=== PATIENT | male | born 1940 | race Caucasian/White ===

== ENCOUNTER → 2018-01-24 | Outpatient (CLI) | payer MEDICARE, OTHER ==
[~2018-01-24] MED LIST: ASCO500 PO; ASPI81EC PO; CALCAVITD PO; CHOL10002 PO; DIAZ5 PO; GLUCHON PO; GUAI600T33 PO; HYDR1TAB94 PO; IBUP800 PO; IBUPROFEN; LEVFLO500 PO; NORT25 PO; OMEP20ER PO; OXYC5 PO; PROCODE120 PO; SUCR1 PO; TADA10TA; TADA10TA PO; [UNRECOGNIZED DRUG - REMARK]
[2018-01-25 10:53] LABS: Adenovirus F 40/41 Not Detected (NOT DETECT); Astrovirus Not Detected (NOT DETECT); Campylobacter Sp Not Detected (NOT DETECT); Cryptosporidium Not Detected (NOT DETECT); Cyclospora Cayetanensis Not Detected (NOT DETECT); E. Coli O157 Not Detected (NOT DETECT); Entamoeba Histolytica Not Detected (NOT DETECT); Enteroaggregative E. coli-EAEC Not Detected (NOT DETECT); Enteropathogenic E. coli-EPEC Not Detected (NOT DETECT); Enterotoxigenic E. coli-ETEC Not Detected (NOT DETECT); Giardia Lamblia Not Detected (NOT DETECT); Norovirus GI/GII Not Detected (NOT DETECT); Plesiomonas Shigelloides Not Detected (NOT DETECT); Rotavirus A Not Detected (NOT DETECT); Salmonella Sp Not Detected (NOT DETECT); Sapovirus Not Detected (NOT DETECT); Shiga Toxin-prod E. coli-STEC Not Detected (NOT DETECT); Shigella/Enteroin E. coli-EIEC Not Detected (NOT DETECT); Vibrio Cholerae Not Detected (NOT DETECT); Vibrio Sp Not Detected (NOT DETECT); Yersinia Enterocolitica Not Detected (NOT DETECT)
== END | disposition home or self-care (01) ==
LOC: LAB 15:00 → LAB SHORT 15:00
DX: R19.7 Diarrhea, unspecified (principal)
CPT/HCPCS: 87507

== ENCOUNTER 2020-09-24 19:03 | Inpatient (IN) | payer OTHER ==
[~2020-09-24] VITALS: Ht 188 cm; Wt 99.3 kg
[~2020-09-24 19:03] MED LIST changes: +ASPI81CH PO; -CHOL10002 PO; +Percocet 5-3251 EACH PO; +VITAMIN D PO
[2020-09-24 19:42] LABS: BASOPHILS ABSOLUTE AUTO 0.04 K/mm3 (0.00-0.23); BASOPHILS PERCENT AUTO 1 % (0-2); EOSINOPHILS ABSOLUTE AUTO 0.04 K/mm3 (0.00-0.68); EOSINOPHILS PERCENT AUTO 1 % (0-6); Hemoglobin 15.4 g/dL (13.5-17.5); IMMATURE GRAN ABSOLUTE AUTO 0.19 K/mm3 (0.00-0.10); IMMATURE GRAN PERCENT AUTO 2 % (0-1); LYMPHOCYTES ABSOLUTE AUTO 2.98 K/mm3 (0.84-5.20); LYMPHOCYTES PERCENT AUTO 35 % (21-46); MONOCYTES ABSOLUTE AUTO 0.48 K/mm3 (0.16-1.47); MONOCYTES PERCENT AUTO 6 % (4-13); Mean Corpuscular HGB 33.6 pg (26.0-34.0); Mean Corpuscular Volume 96 fL (80-100); Mean Platelet Volume 9.1 fL (9.1-12.4); NEUTROPHILS ABSOLUTE AUTO 4.89 K/mm3 (1.96-9.15); NEUTROPHILS PERCENT AUTO 57 % (41-73); Platelet Count 194 K/mm3 (150-400); RDW Coefficient Variation 13.1 % (11.7-14.2); RDW Standard Deviation 46.3 fL (35.1-46.3); Red Blood Cell Count 4.58 M/mm3 (4.30-5.90); White Blood Cell Count 8.62 K/mm3 (4.00-11.30)
[2020-09-24 19:56] LABS: International Normalized Ratio 1.06; Prothrombin Time Results 11.4 Sec (9.7-11.5)
[2020-09-24 20:17] LABS: Alanine Aminotransfer (ALT/SGP 39 U/L (12-78); Albumin, Blood 3.4 g/dL (3.4-5.0); Albumin/Globulin Ratio 1.2 (0.8-1.8); Alk Phos 95 U/L (50-136); Anion Gap 10 mmol/L (6-16); Aspartate Aminotrans (AST/SGOT 72 U/L (12-37); Bilirubin, Total 0.4 mg/dL (0.1-1.0); Blood Urea Nitrogen 12 mg/dL (8-24); Bun/Creatinine Ratio 10.5 (12.0-20.0); CO2, Blood 22 mmol/L (21-32); Calcium, Blood 8.5 mg/dL (8.5-10.1); Chloride, Blood 106 mmol/L (98-108); Creatinine, Blood 1.14 mg/dL (0.60-1.20); Globulin, Blood 2.9 g/dL (2.2-4.0); Glomerular Filtration Rate >60 (60-); Glucose, Blood 165 mg/dL (70-99); Potassium, Blood 2.9 mmol/L (3.5-5.5); Sodium, Blood 138 mmol/L (136-145); Total Protein, Blood 6.3 g/dL (6.4-8.2)
[2020-09-24 20:21] LABS: Source, Urine Catheter
[2020-09-24 20:24] LABS: Bilirubin, Urine Neg (Neg); Blood, Urine 2+ (Neg); Glucose Qualitative, Urine Neg (Neg); Ketones, Urine Neg (Neg); Leukocyte Esterase, Urine Neg (Neg); Nitrite, Urine Neg (Neg); Protein, Urine 3+ (Neg); Specific Gravity, Urine 1.015 (1.003-1.022); Urobilinogen, Urine NORM (Normal)
[2020-09-24 20:32] LABS: Appearance, Urine Hazy (Clear); Color, Urine Yellow (P-Yellow)
[2020-09-24 20:34] LABS: Bacteria Many /hpf; Hyaline Casts 0-2 /lpf (0-2)
[2020-09-24 20:38] LABS: Squamous Epithelial Cells Few /hpf (Few); White Blood Cells, Urine 0-2 /hpf (0-5)
[2020-09-24 20:40] LABS: Spermatozoa Few /hpf
[2020-09-24 22:18] LABS: Prolactin 60.7 ng/mL (2.5-17.4)
[2020-09-25 04:44] LABS: Anion Gap 7 mmol/L (6-16); Blood Urea Nitrogen 11 mg/dL (8-24); Bun/Creatinine Ratio 11.4 (12.0-20.0); CO2, Blood 24 mmol/L (21-32); Chloride, Blood 109 mmol/L (98-108); Creatinine, Blood 0.96 mg/dL (0.60-1.20); Glomerular Filtration Rate >60 (60-); Glucose, Blood 124 mg/dL (70-99); Potassium, Blood 3.7 mmol/L (3.5-5.5); Sodium, Blood 140 mmol/L (136-145)
--- NOTE | 2020-09-25 06:08 | NUR ---
SHIFT SUMMARY PT ARRIVED TO THE UNIT AROUND 2305, CONFUSED AND ORIENTED TO SELF AND . BP HYPOTENSIVE 101/64. HR 70'S, JUMPING UP TO 120-140'S FOR SHORT PERIODS IN SINUS RHYTHM. PT ON 4LPM VIA NC WITH O2 SATS LOW 90'S. NEURO CHECK SHOWED CONFUSION WITH L SIDE MOVEMENTS. PT NEEDED SPECIFIC DETAIL TO SQUEEZE WITH L HAD BUT GIP STRENGTH EQUAL WHEN ABLE TO SQUEEZE. L ARM DRIFT PRESENT. FACE SYMMETRICAL, NO DROOP. WHEN ASKED TO PULL FEET AGAINST HANDS ONLY R HAD RESPONSE. WHEN ASKED TO PULL L FOOT ONLY PT ABLE TO RESPOND WITH SAME STRENGTH R. PUPILS SLUGGISH, PT UNABLE TO FOLLOW FINGER WITH EYES IN ANY DIRECTION, PT WOULD FIX ON R SIDE GAZE. NEURO REMAINED UNCHANGED T/O THE SHIFT. PT NEEDED CONTINUOUS REORIENTATION HE WOULD FORGET WHAT HE WAS TOLD ALMOST IMMEDIATELY. PT REMAIND CONFUSED AND DISORIENTED T/O THE SHIFT, YELLING OUT FOR HIS THINKING HE IS IN HIS HOME. PAIN WAS NOT WELL CONTROLLED UNTIL F[place]ANYL, THEN PT ABLE TO SLEEP SOME. BP HYPOTENSIVE T/O SHIFT AVG 100 SYSTOLIC WITH MAP >65. HR AVG 70'S, WOULD JUMP TO 120-140'S FOR SEVERAL MINUTES, THIS WOULD HAPPEN ABOUT ONCE AN HOUR. PT NPO WITH NS RUNNING T/O THE NIGHT.
[2020-09-25 07:14] LABS: International Normalized Ratio 1.06; Prothrombin Time Results 11.4 Sec (9.7-11.5)
--- NOTE | 2020-09-25 09:56 | NUR ---
JARET WALDROP WALDROP PLACED BY ER UPON ADMIT. V.O. FROM DR. FLORI CHILD TO D/C BENJIE. PATIENT DOES NOT HAVE ANY HISTORY OF RETENTION.
--- NOTE | 2020-09-25 14:12 | NUR ---
PUREE DIET PER DOROTA TORRES TO START ON PUREE DIET WHILE AWAITING ST EVAL. THIN LIQUIDS OK. DIET ORDER UPATED.
--- NOTE | 2020-09-25 16:38 | NUR ---
Shift Summary This morning, patient able to answer orientation questions appropriately and was good historian when answering MRI screening tool. Was AOx4, but appears to be intermittently confused and forgetful. This worsened and patient pulled out IV not even knowing what he did. Patient attempting to climb out of bed becoming more impulsive. Medicated frequently throughout shift which provided temporary short term relief. Rizzo d/c this morning. Attempted to wean off O2, but sternum is painful so patient is shallow breathing. @ 2L, sats between 86-90. Currently on 3-4L to keep sats at 90+. Patient had MRI today. Speech to eval first thing tomorrow morning, will pass this onto oncoming RN. NS @ 150. Tele: SR 70. Heating pad for extra comfort. VSS. WCTM.
--- NOTE | 2020-09-26 00:07 | NUR ---
*2300* PROVIDER PLEASE CALL WITH MRI RESULTS AND UPDATE.
--- NOTE | 2020-09-26 03:46 | NUR ---
SUMMARY PT HAS HAD CONTINUED DISCOMFORT IN LOW BACK, NECK AND RIBS. PT HAS BEEN TX PER EMAR W/ RELIEF. PT HAD NOTED INCREASED CONFUSION DURING SHIFT. PT ALSO BECAME MORE IMPULSIVE AND TRIED TO GET OUT OF BED. PT CONTINUED TO COMPLAIN OF NEED TO VOID BUT UNABLE TO EMPTY BLADDER, BLADDER SCAN SHOWED 350 ML. PROVIDER JAZMIN CALLED AND ORDERED STRIGHT CATH AND PO ZYPREXA. PT MORE COMFORTABLE AND NOT TRYING TO GET OUT OF BED. PT DISCOMFORT BEING MANAGED WELL W/ MEDS AND REPOSITIONING. PT CURRENTLY SLEEPING AND IN NO DISTRESS. CALL LIGHT IN REACH AND BED ALARM ON.
[2020-09-26 04:06] LABS: BASOPHILS ABSOLUTE AUTO 0.02 K/mm3 (0.00-0.23); BASOPHILS PERCENT AUTO 0 % (0-2); EOSINOPHILS ABSOLUTE AUTO 0.01 K/mm3 (0.00-0.68); EOSINOPHILS PERCENT AUTO 0 % (0-6); Hematocrit 38.1 % (37.0-53.0); IMMATURE GRAN ABSOLUTE AUTO 0.05 K/mm3 (0.00-0.10); IMMATURE GRAN PERCENT AUTO 1 % (0-1); LYMPHOCYTES ABSOLUTE AUTO 0.73 K/mm3 (0.84-5.20); LYMPHOCYTES PERCENT AUTO 8 % (21-46); MONOCYTES ABSOLUTE AUTO 0.53 K/mm3 (0.16-1.47); MONOCYTES PERCENT AUTO 6 % (4-13); Mean Corpuscular HGB 33.6 pg (26.0-34.0); Mean Corpuscular HGB Conc 34.1 g/dL (31.5-36.5); Mean Corpuscular Volume 98 fL (80-100); Mean Platelet Volume 9.6 fL (9.1-12.4); NEUTROPHILS PERCENT AUTO 85 % (41-73); Platelet Count 147 K/mm3 (150-400); RDW Coefficient Variation 13.3 % (11.7-14.2); RDW Standard Deviation 48.2 fL (35.1-46.3); Red Blood Cell Count 3.87 M/mm3 (4.30-5.90); White Blood Cell Count 8.84 K/mm3 (4.00-11.30)
[2020-09-26 04:26] LABS: Anion Gap 5 mmol/L (6-16); Blood Urea Nitrogen 12 mg/dL (8-24); Bun/Creatinine Ratio 13.7 (12.0-20.0); CO2, Blood 22 mmol/L (21-32); Calcium, Blood 7.5 mg/dL (8.5-10.1); Chloride, Blood 110 mmol/L (98-108); Creatinine, Blood 0.87 mg/dL (0.60-1.20); Glomerular Filtration Rate >60 (60-); Glucose, Blood 116 mg/dL (70-99); Potassium, Blood 3.4 mmol/L (3.5-5.5); Sodium, Blood 137 mmol/L (136-145)
[2020-09-26 08:30] LABS: Base Excess Venous -1.9 mmol/L; Bicarbonate Venous 21.8 mmol/L (24.0-30.0); PCO2 Venous 39.7 mmHg (38-42); PO2 Venous 25.1 mmHg (38-42); pH Blood Venous 7.38 (7.34-7.37)
--- NOTE | 2020-09-26 10:00 | NUR ---
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
--- NOTE | 2020-09-26 11:56 | NUR ---
BLADDER SCAN BLADDER SCANNED PT PER RN HOWIE, LESS THAN 60MLS.
[2020-09-26 16:34] LABS: Source, Urine Catheter
[2020-09-26 18:12] LABS: Appearance, Urine Clear (Clear); Bilirubin, Urine Neg (Neg); Blood, Urine 3+ (Neg); Color, Urine Yellow (P-Yellow); Glucose Qualitative, Urine Neg (Neg); Ketones, Urine 2+ (Neg); Leukocyte Esterase, Urine Neg (Neg); Nitrite, Urine Neg (Neg); Protein, Urine 2+ (Neg); Specific Gravity, Urine 1.015 (1.003-1.022); Urobilinogen, Urine NORM (Normal)
[2020-09-26 18:26] LABS: Red Blood Cells, Urine 0-2 /hpf (0-2)
[2020-09-26 18:27] LABS: Bacteria Mod /hpf; Squamous Epithelial Cells Not Seen /hpf (Few)
--- NOTE | 2020-09-26 18:45 | NUR ---
SHIFT SUMMARY- PT HAS BLADDER SCANS Q6. STRAIGHT CATHED ONCE THIS SHIFT THE FIRST BLADDER SCAN SHOWED A VOLUME OF 60ML. PT HAD A CIWA OF 23 THIS MORNING MEDICATED WITH 1MG OF IV ATIVAN AND THE PT SLEPT WELL FOR SEVERAL HOURS. WHEN THE PT WOKE AGAIN HE WAS AGAIN AGGITATED AND PAINFUL. MEDICATED WITH ATIVAN, PT APPEARS TO BERESTING COMFORTABLY AT THIS TIME. O2 SATS MAINTAINING AT 93% ON 5L VIA NC IN HIS MOUTH. PT CURRENTLY IN BED SLEEPING. CALL LIGHT IN REACH, BED ALARM SET. PT DOES NOT CALL APPROPRIATELY. WILL CTM AND PASS ON TO NIGHT RN IN BEDSIDE REPORT.
--- NOTE | 2020-09-27 00:44 | NUR ---
UPDATE DR WOLF NOTIFIED THAT PATIENT ONLY HAS ATIVAN FOR CWIA SCORE GREATER THAN 19. DR WOLF GAVE ADDITIONAL ORDERS FOR ATIVIAN FOR CIWA SCORES.
[2020-09-27 04:17] LABS: BASOPHILS ABSOLUTE AUTO 0.02 K/mm3 (0.00-0.23); BASOPHILS PERCENT AUTO 0 % (0-2); EOSINOPHILS PERCENT AUTO 0 % (0-6); Hematocrit 36.9 % (37.0-53.0); Hemoglobin 12.6 g/dL (13.5-17.5); IMMATURE GRAN ABSOLUTE AUTO 0.07 K/mm3 (0.00-0.10); IMMATURE GRAN PERCENT AUTO 1 % (0-1); LYMPHOCYTES ABSOLUTE AUTO 0.92 K/mm3 (0.84-5.20); LYMPHOCYTES PERCENT AUTO 9 % (21-46); MONOCYTES PERCENT AUTO 7 % (4-13); Mean Corpuscular HGB 33.4 pg (26.0-34.0); Mean Corpuscular HGB Conc 34.1 g/dL (31.5-36.5); Mean Corpuscular Volume 98 fL (80-100); Mean Platelet Volume 9.4 fL (9.1-12.4); NEUTROPHILS ABSOLUTE AUTO 8.97 K/mm3 (1.96-9.15); NEUTROPHILS PERCENT AUTO 84 % (41-73); Platelet Count 133 K/mm3 (150-400); RDW Coefficient Variation 13.1 % (11.7-14.2); RDW Standard Deviation 46.3 fL (35.1-46.3); Red Blood Cell Count 3.77 M/mm3 (4.30-5.90); White Blood Cell Count 10.68 K/mm3 (4.00-11.30)
[2020-09-27 04:35] LABS: Anion Gap 5 mmol/L (6-16); Blood Urea Nitrogen 12 mg/dL (8-24); Bun/Creatinine Ratio 12.2 (12.0-20.0); CO2, Blood 24 mmol/L (21-32); Chloride, Blood 108 mmol/L (98-108); Creatinine, Blood 0.98 mg/dL (0.60-1.20); Glomerular Filtration Rate >60 (60-); Glucose, Blood 116 mg/dL (70-99); Potassium, Blood 3.3 mmol/L (3.5-5.5); Sodium, Blood 137 mmol/L (136-145)
--- NOTE | 2020-09-27 05:52 | NUR ---
SHIFT SUMMARY PATIENT IS ALERT AND ORIENTED TO SELF ONLY. REPOSITOINED Q2 HOURS. CIWA 22 AT ONE POINT, MEDICATED PER EMAR, PATIENT SLEEPING SINCE APPROX 0300. PATIENT BREATHING BECAME MORE LABORED AND WHEEZING IN THE UPPER AIRWAY, PATIENT WORE CPAP MOST THE NIGHT, 02 SATS >90% ON CPAP @5L O2, AND 02 SATS >90% ON 5L NC WHEN NOT ON CPAP. PATIENTS HEART RATE FLUCTUATING BETWEEN PERIODS OF SR AND ST @140s-160s PER CRANBERRY GROWER, CALLED HOSPITALIST, TOLD TO MONITOR. MEDICATED FOR RIB PAIN PER EMAR. BED ALARM ON, CALL LIGHT IN REACH.
--- NOTE | 2020-09-27 10:13 | NUR ---
THIS RN AGREES WITH STUDENT NURSE SHIFT ASSESSMENT DOCUMENTATION.
--- NOTE | 2020-09-27 18:21 | NUR ---
SHIFT SUMMARY PT IS A/O X1 FOR SELF AND IS COOPERATIVE OF CARE. PT DOES NOT CALL APPROPIATELY. PT WAS IN AFIB RATE CONTROLLED THROUGHOUT SHIFT. O2 SATS >94% ON 5L NC THROUGHOUT SHIFT. CIWA RANGED 3-15, TREATED PER EMAR. NO REPORT CHEST PAIN/PRESSURE THROUGHOUT SHIFT. RIB PAIN NOTED, TREATED PER EMAR. CONDOM CATHETER IN PLACE. PT STATES THT HE NEEDS TO GET UP, BED ALARM IN PLACE.
--- NOTE | 2020-09-27 19:08 | NUR ---
PATIENT HAD AUDITORY/VISUAL HALLUCINATIONS AT TIMES T/O SHIFT, PATIENT WAS HOLDING CONVERSATIONS WITH PEOPLE NOT PRESENT IN THE ROOM, AND REFERING TO PEOPLE NOT PRESENT, STATING AT TIMES "I NEED TO GO HELP THAT GAL OVER THERE" MOTIONING TOWARD AN EMPTY CORNER OF THE ROOM.
--- NOTE | 2020-09-27 19:10 | NUR ---
THIS RN AGREES WITH STUDENT NURSE SHIFT SUMMARY NOTE.
[2020-09-28 04:13] LABS: Albumin, Blood 2.5 g/dL (3.4-5.0); Anion Gap 6 mmol/L (6-16); Blood Urea Nitrogen 15 mg/dL (8-24); Bun/Creatinine Ratio 15.6 (12.0-20.0); CO2, Blood 24 mmol/L (21-32); Calcium, Blood 8.1 mg/dL (8.5-10.1); Chloride, Blood 108 mmol/L (98-108); Creatinine, Blood 0.96 mg/dL (0.60-1.20); Glomerular Filtration Rate >60 (60-); Glucose, Blood 108 mg/dL (70-99); Phosphorus, Blood 2.2 mg/dL (2.5-4.9); Potassium, Blood 3.6 mmol/L (3.5-5.5); Sodium, Blood 138 mmol/L (136-145)
--- NOTE | 2020-09-28 04:31 | NUR ---
CERTIFIED FIRST ASSISTANT SUMMARY PT HAS BEEN VERY DISORIENTED THIS SHIFT ONLY ALERT TO SELF. CIWA'S HAVE BEEN 5-15 DUE TO CONSTANT FIDGETING W GROSS MOTOR MOVEMENTS AND DISORIENTATION. TREMORS HAVE BEEN MILD TO NONE W NO NAUSEA OR HEADACHE PER PT. PT'S O2 SATS REMAINED >92 ON CPAP W 4L BLEED IN. PT DID HAVE AN EPISODE AROUND 0345 WHERE HE BECAME MORE TACHYPNEIC AND RESTLESS HOWEVER 02 SATS REMAINED STABLE AND HE DENIED ANY DISTRESS. IV LOPRESSOR GIVEN ONCE FOR SUSTAINED AFIB 150, PT TOLERATED WELL AND WAS SR/AFIB 60'S AFTERWARDS. BLADDER SCANS HAVE SHOWN <250 URINE BUT CONDOM CATH IS IN PLACE AND PT HAS VOIDED 400ML THIS SHIFT INTO IT. VSS, WCTM.
--- NOTE | 2020-09-28 16:10 | NUR ---
Brief visit this afternoon. Spoke with Bedside RN Alesha who reports Pt desats when eating. Alesha reports Dr Lorenzo plans to visit Pt and spouse soon. Pt resting in bed upon arrival. Pt is pleasantly confused and is A&OX2. Pt is able to verbalize correct year and is orientated to self and spouse. Pt unable to verbalize place and reason for hospital stay. Spouse Elina at bedside. Engaged in therapeutic discussion regarding code status. Educated on life sustaining treatment including risk factors and implications of CPR. Elina reports thinking Pt signed a DNR order when Pt's PCP was Dr Mccloud but is unsure. Elina states possibility of records being transfered to his new PCP Dr Brown. Offered therapeutic listening. Pt and spouse agreeable for continued Palliative Care visits. Plan: Will contact Dr Brown and request POLST and will F/U for therapeutic and supportive visits.
--- NOTE | 2020-09-28 17:43 | NUR ---
SHIFT SUMMARY PATIENT REMAINED CONFUSED THROUGHOUT SHIFT. PATIENT WAS ABLE TO CARRY CONVERSATION AT TIMES REGARDING IMMEDIATE SURROUNDINGS AND PLEASANTRIES, HOWEVER WOULD THEN POINT TO THE EMPTY WALL AND MAKE STATEMENTS SUCH "LOOK AT THAT MAN THROWING DARTS", OR STATE THAT HE WAS "HIKING PRISON UP [facility] SPEECH THERAPY SAW PATIENT AND CLEARED FOR PUREE DIET WITH FEEDER AND PRECAUTIONS, ABOUT AN HOUR AFTER SPEECH EVAL TODAY PATIENT O2 SATS DROPPED TO HIGH 70S/LOW 80S, HIGH FLOW NASAL CANNULA TURNED UP TO 11 L AND PLACED IN MOUTH. RT CALLED AND BREATHING TREATMENT DONE, PATIENT REGAINED O2 SATS IN LOW 90S AFTER ABOUT 15 MINUTES OF O2 BEING TITRATED UP. PATIENT OTHERWISE REMAINED ON O2 AT 5L VIA NASAL CANNUAL T/O SHIFT. PATIENT WORKED WITH PT/OT, WAS ABLE TO ALMOST STAND AT BEDSIDE WITH ASSISTANCE. PATIENT REPOSITIONED T/O SHIFT, BRIEF WAS CHECKED AND CHANGED D/T INCONTINENCE, AND ORAL CARE DONE T/O SHIFT, SUCTIONING DONE PRN. CIWA REMAINED IN RANGE OF 4-8 D/T CONFUSION AND HALLUCINATIONS, NO AGITATION/ANXIETY NOTED THIS SHIFT. PATIENT IS VERY SORE DURING REPOSITIONING, PAIN MEDS GIVEN PER EMAR. L KNEE REMAINS PAINFUL, DR. KERR NOTIFIED AND ORDERS FOR L KNEE XR GIVEN.
[2020-09-29 05:15] LABS: PCO2 Arterial 36.7 mmHg (35-45); PO2 Arterial 57.5 mmHg (80-100); pH Blood Arterial 7.45 (7.35-7.45)
--- NOTE | 2020-09-29 05:19 | NUR ---
DE ICER FINISHER SUMMARY PT HAS REMAINED AXO X1 WITH VISUAL HALLUCINATIONS THROUGHOUT THE SHIFT. PT BELIEVED HE WAS "ON A SHIP" FOR FIRST HALF OF THE SHIFT. CIWA'S 5-15 DUE TO CONSTANT FIDGETING (AGITAIO) AND DISORIENTATION W HALLUCINATIONS. NO TREMOR, HEADACHE, OR NAUSEA THIS SHIFT. PT WAS VERY RESTLESS UNTILL 0200 AND THEN SLEPT VERY HARD FOR REST OF SHIFT. BLADDER SCAN AT 2200 SHOWED 700ML IN BLADDER SO STRAIGHT CATH WAS PERFORMED. BLADDER SCAN THIS AM SHOWED 250-300ML. CONDOM CATH IN PLACE W ZERO OUTPUT THIS SHIFT. LR RUNNING AT 75ML/HR. PT'S HR MUCH BETTER THIS SHIFT COMPARED TO PREVIOUS NIGHT HE HAS BEEN AFIB/NSR 60-70'S ALL SHIFT. PT DID WELL W MED DELIVERY IN APPLESAUCE. 5-10L REQUIRED TO MAINTAIN O2 SATS >92%. PT DID NOT TOLERATE CPAP FOR MOST OF THE NIGHT BUT IS WEARING IT THIS AM. VSS, WCTM.
[2020-09-29 05:50] LABS: Anion Gap 4 mmol/L (6-16); Blood Urea Nitrogen 15 mg/dL (8-24); Bun/Creatinine Ratio 19.4 (12.0-20.0); CO2, Blood 25 mmol/L (21-32); Calcium, Blood 7.7 mg/dL (8.5-10.1); Chloride, Blood 111 mmol/L (98-108); Creatinine, Blood 0.77 mg/dL (0.60-1.20); Glomerular Filtration Rate >60 (60-); Glucose, Blood 113 mg/dL (70-99); Phosphorus, Blood 2.6 mg/dL (2.5-4.9); Potassium, Blood 3.4 mmol/L (3.5-5.5); Sodium, Blood 140 mmol/L (136-145)
--- NOTE | 2020-09-29 18:16 | NUR ---
SHIFT NOTE PT ALERT, CONFUSED, CIWA 8, HALLUCINATING. PT IS INTERMITTENTLY ORIENTED TO YEAR, HE IS ORIENTED TO SELF AND FMAILY. PT WITH CONDOM CATH THAT HE HAS ATTEMPTED TO REMOVE THIS EVENING, CATH CARO PLACED. VSS. MEDS CRUSHED IN APPLESAUCE THAT HE TOLERATES WELL. PT IS COOPERATIVE AND EASILY REDIRECTED AND FRIENDLY
--- NOTE | 2020-09-29 22:46 | NUR ---
CARE ASSUMPTION PT IS ALERT, ORIENTATED TO SELF AND EVENT. VSS. TELE SR 80S. PT EXPERIENCES AUDITORY AND VISUAL HALLUCINATIONS. PT STATED THERE WAS A CAT IN HIS ROOM AND TO SAVE THE CAT. PT ASKED "WHO IS THAT MAN BEHIND YOU" AND THERE WAS NO ONE IN THE ROOM. PT CARRIED ON CONVERSATIONS WITH THE PEOPLE HE WOULD SEE. PT CALM AND COOPERATIVE. PT STIFF WHEN REPOSITIONING AND HAS BACK PAIN DURING THIS. ONCE REPOSITIONED PAIN IS ALLIEVATED.
--- NOTE | 2020-09-30 04:00 | NUR ---
SHIFT SUMMARY PT VSS. TELE SR 70S. SPO2 >90% ON 4L NC. PT IS ALERT. PT CONTINUES TO HAVE AUDITORY AND VISUAL HALLUCINATIONS T/O THE NIGHT. PT IS CALM AND COOPERATIVE. WILL CONTINUE TO MONITOR AND PROVIDE CARE.
[2020-09-30 04:33] LABS: Albumin, Blood 2.2 g/dL (3.4-5.0); Anion Gap 4 mmol/L (6-16); Blood Urea Nitrogen 13 mg/dL (8-24); Bun/Creatinine Ratio 17.3 (12.0-20.0); CO2, Blood 26 mmol/L (21-32); Chloride, Blood 110 mmol/L (98-108); Creatinine, Blood 0.75 mg/dL (0.60-1.20); Glomerular Filtration Rate >60 (60-); Glucose, Blood 117 mg/dL (70-99); Phosphorus, Blood 2.2 mg/dL (2.5-4.9); Potassium, Blood 3.5 mmol/L (3.5-5.5); Sodium, Blood 140 mmol/L (136-145)
--- NOTE | 2020-09-30 14:40 | NUR ---
Assumed Care Received report from Sonali PCU-RN. Patient arrived to MED 306 @ approx. 1420 via bed. NS and Abx infusing. Having visual hallucinations saying "Look! There's a piece of cement on the wall." pointing to the ceiling as pt was rolling into room. Arrived with personal belongings, meds, and on O2 @ 3L NC. Settled to room, call light in reach, bed in lowest position. Currently working with PT at this time.
--- NOTE | 2020-09-30 18:51 | NUR ---
Shift Summary A/O to self and family. Continues to have visual hallucinations also pulling on tele and condom cath. Activity apron given which seems to help a little. C/O L knee and back pain, medicate per EMAR. Pleasantly confused. Patient HR 160's for approx 2-3 minutes. CIWA 7 d/t hallucinations and clouding of sensorium. Condom cath intact.
[2020-10-01 04:53] LABS: BASOPHILS ABSOLUTE AUTO 0.02 K/mm3 (0.00-0.23); BASOPHILS PERCENT AUTO 0 % (0-2); EOSINOPHILS ABSOLUTE AUTO 0.07 K/mm3 (0.00-0.68); EOSINOPHILS PERCENT AUTO 1 % (0-6); Hematocrit 34.9 % (37.0-53.0); Hemoglobin 11.9 g/dL (13.5-17.5); IMMATURE GRAN ABSOLUTE AUTO 0.03 K/mm3 (0.00-0.10); IMMATURE GRAN PERCENT AUTO 1 % (0-1); LYMPHOCYTES ABSOLUTE AUTO 1.16 K/mm3 (0.84-5.20); LYMPHOCYTES PERCENT AUTO 20 % (21-46); MONOCYTES PERCENT AUTO 10 % (4-13); Mean Corpuscular HGB 33.7 pg (26.0-34.0); Mean Corpuscular HGB Conc 34.1 g/dL (31.5-36.5); Mean Corpuscular Volume 99 fL (80-100); Mean Platelet Volume 9.9 fL (9.1-12.4); NEUTROPHILS ABSOLUTE AUTO 4.06 K/mm3 (1.96-9.15); NEUTROPHILS PERCENT AUTO 68 % (41-73); Platelet Count 206 K/mm3 (150-400); RDW Coefficient Variation 13.4 % (11.7-14.2); Red Blood Cell Count 3.53 M/mm3 (4.30-5.90); White Blood Cell Count 5.94 K/mm3 (4.00-11.30)
[2020-10-01 05:48] LABS: Albumin, Blood 2.1 g/dL (3.4-5.0); Anion Gap 5 mmol/L (6-16); Blood Urea Nitrogen 14 mg/dL (8-24); Bun/Creatinine Ratio 17.7 (12.0-20.0); CO2, Blood 26 mmol/L (21-32); Calcium, Blood 7.8 mg/dL (8.5-10.1); Chloride, Blood 109 mmol/L (98-108); Creatinine, Blood 0.79 mg/dL (0.60-1.20); Glomerular Filtration Rate >60 (60-); Glucose, Blood 110 mg/dL (70-99); Phosphorus, Blood 3.4 mg/dL (2.5-4.9); Potassium, Blood 3.4 mmol/L (3.5-5.5); Sodium, Blood 140 mmol/L (136-145)
--- NOTE | 2020-10-01 08:40 | NUR ---
SHIFT SUMMARY: PATIENT IS ALERT AND ORIENTED TO SELF ONLY. AUDITORY AND VISUAL HALLUCINATIONS OBSERVED. PATIENT IS SCORING 15 ON CIWA'S FOR HALLUCINATIONS AND CONFUSION. DR TURNER IS NOTIFIED. TOOL LATHE OPERATOR DOES NOT FEEL SCORES ARE DUE TO DETOXING, ADMIT DATE WAS 09/25/20. NO NEW ORDERS, CONTINUE TO MONITOR. PAATIENT IS A FEEDER AND IS ASSISTED WITH PO FLUIDS, NECTAR THICK GIVEN BY SPOON.
--- NOTE | 2020-10-01 17:42 | NUR ---
SHIFT SUMMARY PT A&O TO SELF AND FAMILY, PLEASANTLY CONFUSED AT TIMES, ABLE TO MAKE NEEDS KNOWN, ABLE TO FOLLOW SIMPLE INSTRUCTIONS FROM STAFF. PT MEDICATED FOR BACK AND KNEE PAIN PER EMAR. DENIES CP, SOB, OR N&V. PT ON 3LPM O2 VIA NC, ON CONT BIOX, SATS >92%. PT CONT ON IV ABX, NO ASE NOTED. PT AT BEDREST D/T SEVERE BACK PAIN W/ MOVEMENT. 2P MAX WITH BED MOBILITY. CONDOM CATH IN PLACE, DRAINING WELL, PT DENIES ANY DYSURIA. BED AT LOWEST POSITION, PT'S SPOUSE AT BEDSIDE AT THIS TIME. CALL LIGHT WITHIN REACH.
--- NOTE | 2020-10-02 05:54 | NUR ---
SHIFT SUMMARY: A&O TO SELF, PLEASANTLY CONFUSED WITH VISUAL HALLUCINATIONS. NO BM SINCE 09/24/20. UNABLE TO THICKEN MIRALAX OR MOM. DR WOLF IS NOTIFIED AND ORDER FO FLEETS ENEMA WAS OBTAINED AND ADMINISTERED. CONTINUES TO HAVE GREAT PAIN WITH ACTIVITY, EVEN TURNING IN BED. TYLENOL AND IBUPROPHEN ARE SCHEDULED AND PROVIDING GOOD PAIN CONTROL AT REST.
--- NOTE | 2020-10-02 17:00 | NUR ---
Received call from Bedside RN reporting Pt and spouse are requesting assistance with completing a POLST. Pt resting in bed upon arrival. Pt is A&OX2/3. Pt knows he is in the hospital in [place] but unable to provide name of hospital. Pt unable to verbalize appropriate reason for hospital stay. Pt is able to verbalize current year. Pt reports a tolerable 2/10 pain. Pt's spouse Elina is at bedside. Elina prefers to be addressed as Joyce. Engaged in therapeutic conversation regarding code status and POLST. Educated on life sustaining treatment including risk factors and implications of CPR. Educated on each section needing to be completed. Pt and spouse V/U. Assisted Pt with completing POLST. Pt's wishes on POLST are DNR and Litmited Treatment. Pt and spouse express appreciation and report no other concerns at this time. Plan: Obtain copies of POLST upon MD signature for Pt's EMR. Pt requesting extra copy be given to him for PCP. Palliative Care will remain available.
--- NOTE | 2020-10-02 18:26 | NUR ---
SHIFT SUMMARY PT AAO TO SELF AND FAMILY, PLEASANTLY CONFUSED, REDIRECTABLE. PLEASANT AND COOPERATIVE WITH CARE. PT MEDICATED FOR PAIN PER EMAR. NO C/O CP, SOB, OR N&V. PT CONTINUES ON 3LPM O2 VIA NC, SATS >92%. PT CONTINUES TO HAVE NO BM, BOWEL CARE TX GIVEN ORDERED, NOTIFIED DR. KERR VIA PHONE CALL. PT DENIES ANY ABD PAIN, NO C/O ANY ABDOMINAL DISCOMFORT AT THIS TIME. PT ATE MEALS W/O ISSUES. PT's AT BEDSIDE THIS AFTERNOON. PT CALM AND RESTED IN BED AT THIS TIME, BED AT LOWEST POSITION. CALL LIGHT WITHIN REACH.
[2020-10-03 05:15] LABS: Anion Gap 3 mmol/L (6-16); Blood Urea Nitrogen 15 mg/dL (8-24); Bun/Creatinine Ratio 18.7 (12.0-20.0); CO2, Blood 27 mmol/L (21-32); Calcium, Blood 8.1 mg/dL (8.5-10.1); Chloride, Blood 109 mmol/L (98-108); Glomerular Filtration Rate >60 (60-); Glucose, Blood 121 mg/dL (70-99); Sodium, Blood 139 mmol/L (136-145)
--- NOTE | 2020-10-03 07:51 | NUR ---
SHIFT SUMMARY: PATIENT IS ALERT AND ORIENTED TO SELF ONLY. PAIN IS MUCH BETTER CONTROLED ALLOWING FOR INCREASED MOBILITY. ASSISTANCE OF 2 WITH A WALKER IS NEEDE FOR TRANFER TO BSC AND CHAIR. INC. OF BOWEL AND BLADDER. BOWEL CARE HAS BEEN GIVEN PER MAR AND RESULTED WITH A SMALL BROWN SOFT FORMED BM. PATIENT IS FIXATED ABOUT HIS BOWEL CARE REGIMIN AT HOME WHICH INCLUDES A SYRINGE AND SOME SORT OF FLUSHING.
--- NOTE | 2020-10-03 11:26 | NUR ---
LIDOCAINE PATCH AND LEFT CALF: LATE ENTRY FOR 10:[address] SANTOS THE PATIENT'S CONTINUED PAIN. NEW ORDERS RECEIVED. ALSO DISCUSSED THE LARGER SIZE OF THE PATIENT'S LEFT CALF. NO PAIN OR REDNESS NOTED ON THE CALF. NO TENDERNESS UPON PALPATION OR WITH MOVEMENT PER PATIENT REPORT. NEW ORDERS RECEIVED.
--- NOTE | 2020-10-03 19:42 | NUR ---
END OF SHIFT SUMMARY: PATIENT REPORTED PAIN IN HIS LOWER BACK THROUGHOUT THE SHIFT. PATIENT REPORTED THAT HE DOES NOT TYPICALLY EXPERIENCE LOWER BACK PAIN. MEDICATED PER SCHEDULED MEDICATIONS. BROUGHT RECLINER IN THE ROOM. PATIENT ABLE TO GET UP TO THE RECLINER WITH PT. PATIENT REPORTED SOME INCREASED COMFORT. PATIENT DOES HAVE SOME CONFUSION AND DISPLAYS STML. EXAMPLE, PATIENT NEEDED A REMINDER TO THE REASON FOR LOVENOX TWICE IN A SPAN OF TWO MINUTES. PATIENT UNABLE TO ALWAYS REMEMBER IF HE HAS PROVIDED INFORMATION TO STAFF OR NOT. NO HALLUCINATIONS NOTED, AUDITORY OR VISUAL. PATIENT TOLERATING HIS NEW DIET TEXTURE ORDER AND THIN LIQUIDS WELL. NO COUGHING, THROAT CLEARING, OR DIFFICULTY SWALLOWING NOTED. PATIENT APPRECIATIVE OF THE CHANGE. PATIENT'S AT BEDSIDE THIS AFTERNOON. SHE IS SUPPORTIVE OF THE PATIENT AND INVOLVED IN HIS CARE.
--- NOTE | 2020-10-04 05:46 | NUR ---
SHIFT SUMMARY- PT. A&O, PLEASANT, WITH INTERMITTEN CONFUSION AT TIMES. MEDICATED FOR C/O LOWER BACK PAIN LAST NIGHT WITH GOOD EFFECT. PT. ASLEEP MOST OF THE NIGHT, NO APPARENT DISTRESS NOTED. USES URINAL IN BED W/O DIFFICULTY, VSS. CALL LIGHT WITHIN REACH AND SIDE RAILS UPX2. WILL CONT TO MONITOR.
--- NOTE | 2020-10-04 17:27 | NUR ---
SUMMARY PT RESTING IN BED VISITING WITH HIS , PT HAS BEEN PLEASANT AND COOPERATIVE WITH CARE T/O THE DAY, FORGETFUL AT TIMES AND NEEDS REORIENTATION, PT MED PER EMAR FOR PAIN, PT DID WORK WITH PT/OT/ST TODAY, RECOMMENDATION IS SNF AT DISCHARGE, HOPEFUL TO DC IN 1-2 DAYS, VSS, NO COMPLAINTS, WILL CONTINUE TO MONITOR
--- NOTE | 2020-10-05 04:46 | NUR ---
SHIFT SUMMARY PT ADMITTED FOR ASPIRATION PNA/RESP FAILURE. PT IS DNR. PT HAS BED AT [facility] THAT WILL BE AVAILABLE 10/06/20. PT HAD INCREASE IN BACK PAIN AND WAS MEDICATED FOR PAIN X2. PT USING BSC SECONDARY TO BACK PAIN AND INCREASE IN PAIN WITH AMBULATION. PT CONFUSED AT TIMES THIS SHIFT, UNSURE OF WHERE HE WAS AT VARIOUS TIMES DURING THE SHIFT. PT PUT ON 2L OF OXYGEN AT NIGHT SECONDARY TO SATURATION AT 90%. PT RESTING AT THIS TIME.
--- NOTE | 2020-10-05 05:14 | NUR ---
CTA/CREDIT RATING INSPECTOR I HAVE ASSESSED THIS PT. I HAVE READ THE CREDIT RATING INSPECTOR'S DOCUMENTATION AND I AGREE. SHIFT SUMMARY IN CREDIT RATING INSPECTOR NOTES
--- NOTE | 2020-10-05 10:30 | NUR ---
Pt resting in bed upon arrival. Pt denies pain and dyspnea at this time. Discussed D/C plan for SNF possibly tomorrow with Pt in agreement. has signed POLST. Obtained copies of POLST and delivered copy to medical records. Placed original POLST and copy of POLST on whiteboard for spouse to take home. Copy for Pt's PCP on his next appointment. Spoke with Bedside RN Ila and nursing manager. Discussed case and concerns. student affairs dean reports Pt may be uneasy regarding his choice for DNR. Will attempt F/U visit when spouse is present and revisit wishes. Palliative Care will remain available
--- NOTE | 2020-10-05 16:05 | NUR ---
Pt resting in bed upon arrival. Dr Renteria at bedside along with Dr Aguero and medical student. Dr Renteria reviewing with Pt on plan for SNF. Pt also expresses concerns regarding his wishes for DNR and is having reservations. Offered therapeutic listening and addressed concerns. Re-enforced education regarding CPR including risk factors and implications. Pt wishes to remain DNR for now and will revisit his wishes with PCP. Palliative Care will remain available.
--- NOTE | 2020-10-05 17:10 | NUR ---
SUMMARY PT SITTING UP IN BED VISITING WITH HIS , PT HAS BEEN PLEASANT AND COOPERATIVE WITH CARE T/O THE DAY, CONFUSED AND FORGETFUL AT TIMES, PT MED PER EMAR FOR C/O BACK PAIN, XRAY DONE, PT UP TO THE CHAIR TODAY, WORKED WITH THERAPY, PLAN TO DC TO SNF TOMORROW, VSS, WILL CONTINUE TO MONITOR
--- NOTE | 2020-10-06 04:30 | NUR ---
SHIFT SUMMARY ADMITTED FOR ASPIRATION PNA/RESP FAILURE. PT IS A DNR. PLAN TO DC TO [facility] THIS MORNING. PT WAS MEDICATED FOR PAIN X2 THIS SHIFT. PT HAD OCCASIONAL HALLUCINATIONS OF "WATER FLOODING THE HALLWAY" ON PREVIOUS SHIFT. NO NEW CONCERNS THIS SHIFT.
--- NOTE | 2020-10-06 05:13 | NUR ---
CTA/MOLD YARN SUPERVISOR I HAVE ASSESSED THIS PT. I HAVE READ THE MOLD YARN SUPERVISOR DOCUMENTATION AND I AGREE. SHIFT SUMMARY IN MOLD YARN SUPERVISOR NOTES
[2020-10-06 08:00] LABS: Anion Gap 2 mmol/L (6-16); Blood Urea Nitrogen 10 mg/dL (8-24); Bun/Creatinine Ratio 12.3 (12.0-20.0); CO2, Blood 28 mmol/L (21-32); Calcium, Blood 8.7 mg/dL (8.5-10.1); Chloride, Blood 111 mmol/L (98-108); Creatinine, Blood 0.82 mg/dL (0.60-1.20); Glomerular Filtration Rate >60 (60-); Glucose, Blood 92 mg/dL (70-99); Potassium, Blood 3.8 mmol/L (3.5-5.5); Sodium, Blood 141 mmol/L (136-145)
[2020-10-06] MEDS ORDERED: ASPI81CH PO (11:11)
[2020-10-06] MEDS ORDERED: Acetaminophen325 M1 PO (11:14)
[2020-10-06] MEDS ORDERED: ATOR40TA PO (11:15)
[2020-10-06] MEDS ORDERED: SENNA LAXATIVE8.6 MG PO (11:18)
[2020-10-06] MEDS ORDERED: IBUP400 PO (11:19)
[2020-10-06] MEDS ORDERED: PAIN RELIEF1 EACH TOP (11:22)
[2020-10-06] MEDS ORDERED: DULCOLAX400 MG/5 M PO (11:24)
[2020-10-06 11:25] LABS: SARS-Cov-2 (COVID-19) PCR, MMC NEGATIVE (NEGATIVE)
[2020-10-06] MEDS ORDERED: CALYPXO HP CRE113 GM TOP (11:27)
[2020-10-06] MEDS ORDERED: METOPROLOL SUCC25 MG PO (11:28)
[2020-10-06] MEDS ORDERED: ONE DAILY MUL400 MCG PO (11:29)
[2020-10-06] MEDS ORDERED: TAMS.4ER PO (11:30)
[2020-10-06] MEDS ORDERED: TRAM50 PO (11:33)
[2020-10-06] MEDS ORDERED: POTA10T PO (11:38)
== END 2020-10-06 16:31 | DRG 177 ==
LOC: ER 19:03 → PCU 19:04 → MEDS 09-30 14:14
PROVIDERS: Family Medicine; Internal Medicine; Student in an Organized Health Care Education/Training Program; ADMIT Internal Medicine
DX: J69.0 Pneumonitis due to inhalation of food and vomit (principal); J96.01 Acute respiratory failure with hypoxia; G92 Toxic encephalopathy; I46.8 Cardiac arrest due to other underlying condition; E87.2 Acidosis; G45.9 Transient cerebral ischemic attack, unspecified; T17.928A Food in respiratory tract, part unspecified causing other injury, initial encounter; J18.9 Pneumonia, unspecified organism; Z66 Do not resuscitate; E87.6 Hypokalemia; E83.39 Other disorders of phosphorus metabolism; I48.0 Paroxysmal atrial fibrillation; R33.9 Retention of urine, unspecified; F03.90 Unspecified dementia, unspecified severity, without behavioral disturbance, psychotic disturbance, mood disturbance, and anxiety; Z20.822 Contact with and (suspected) exposure to COVID-19; Z79.899 Other long term (current) drug therapy; I95.9 Hypotension, unspecified; W01.10XA Fall on same level from slipping, tripping and stumbling with subsequent striking against unspecified object, initial encounter; Y92.000 Kitchen of unspecified non-institutional (private) residence as the place of occurrence of the external cause; Z90.49 Acquired absence of other specified parts of digestive tract; Z98.890 Other specified postprocedural states; Z87.891 Personal history of nicotine dependence; R79.89 Other specified abnormal findings of blood chemistry
CPT/HCPCS: 36415; 36600; 51701; 51702; 70450; 70496; 70498; 70551; 71045; 71250; 72100; 73560-LT; 74176; 80048; 80053; 80069; 81001; 82607; 82746; 82803; 83605; 83735; 84146; 84443; 84484; 85025; 85610; 85730; 87086; 92507; 92523; 92526; 92610; 93005; 93010; 93306; 93971; 94660; 94760; 94762; 96372; 96374-59; 96375; 96375-59; 96376; 97110; 97112; 97116; 97129; 97130; 97162; 97164; 97166; 97530; 97535; 99285-25; A9270; G0378; J0295; J1650; J2060; J2250; J2270; J3010; J3411; J3475; J3480; J7030; J7042; J7050; J7060; J7120; Q9967; U0004

== ENCOUNTER 2020-11-09 11:34 | Emergency (ER) | payer OTHER ==
[~2020-11-09] VITALS: Ht 188 cm; Wt 90.7 kg
[~2020-11-09 11:34] MED LIST changes: +ATOR40TA PO; +Acetaminophen325 M1 PO; +CALYPXO HP CRE113 GM TOP; +DULCOLAX400 MG/5 M PO; +IBUP400 PO; +METOPROLOL SUCC25 MG PO; +ONE DAILY MUL400 MCG PO; +PAIN RELIEF1 EACH TOP; +POTA10T PO; +SENNA LAXATIVE8.6 MG PO; +TAMS.4ER PO; +TRAM50 PO
[2020-11-09] MEDS ORDERED: LIDO700A20 TOP (12:57)
[2020-11-09] MEDS ORDERED: Neurontin 100100 MG PO (12:57)
== END 2020-11-09 12:57 | disposition home or self-care (01) ==
LOC: ER 11:34
DX: M54.5 Low back pain (principal); M25.552 Pain in left hip; M25.551 Pain in right hip; Z79.82 Long term (current) use of aspirin; Z79.899 Other long term (current) drug therapy
CPT/HCPCS: 72100; 72170; 99284-25; A9270

== ENCOUNTER → 2021-03-15 | Outpatient (CLI) | payer OTHER ==
[~2021-03-15] MED LIST changes: +LIDO700A20 TOP; +Neurontin 100100 MG PO
[2021-03-15 19:54] LABS: Anion Gap 5 mmol/L (6-16); Blood Urea Nitrogen 15 mg/dL (8-24); Bun/Creatinine Ratio 17.5 (12.0-20.0); CO2, Blood 30 mmol/L (21-32); Calcium, Blood 9.2 mg/dL (8.5-10.1); Chloride, Blood 103 mmol/L (98-108); Creatinine, Blood 0.86 mg/dL (0.60-1.20); Glomerular Filtration Rate >60 (60-); Glucose, Blood 99 mg/dL (70-99); Potassium, Blood 4.5 mmol/L (3.5-5.5); Sodium, Blood 138 mmol/L (136-145)
== END | disposition home or self-care (01) ==
LOC: LAB SHORT 18:58
PROVIDERS: Family Medicine
DX: R60.9 Edema, unspecified (principal)
CPT/HCPCS: 80048

== ENCOUNTER → 2021-06-01 | Outpatient (CLI) | payer OTHER | END | disposition home or self-care (01) | LOC: LAB SHORT 14:45 | DX: L72.3 Sebaceous cyst (principal) | CPT/HCPCS: 87070; 87075; 87205 ==

== ENCOUNTER 2021-12-22 06:06 | Emergency (ER) | payer OTHER ==
[~2021-12-22] VITALS: Ht 188 cm; Wt 65.8 kg
== END 2021-12-22 08:14 | disposition home or self-care (01) ==
LOC: ER 06:06
DX: I83.891 Varicose veins of right lower extremity with other complications (principal); Z87.891 Personal history of nicotine dependence
CPT/HCPCS: 99283

== ENCOUNTER 2024-05-19 19:42 | Emergency (ER) | payer OTHER ==
[~2024-05-19] VITALS: Ht 188 cm; Wt 79.4 kg
[~2024-05-19 19:42] MED LIST changes: +DIPH25 PO; +FAMO40 PO
[2024-05-19 19:45] VITALS: BP 134/86
[2024-05-19 20:13] LABS: BASOPHILS ABSOLUTE AUTO 0.03 K/mm3 (0.00-0.23); BASOPHILS PERCENT AUTO 0 % (0-2); EOSINOPHILS PERCENT AUTO 2 % (0-6); Hematocrit 41.8 % (37.0-53.0); Hemoglobin 14.5 g/dL (13.5-17.5); IMMATURE GRAN ABSOLUTE AUTO 0.02 K/mm3 (0.00-0.10); IMMATURE GRAN PERCENT AUTO 0 % (0-1); LYMPHOCYTES ABSOLUTE AUTO 2.28 K/mm3 (0.84-5.20); LYMPHOCYTES PERCENT AUTO 33 % (21-46); MONOCYTES ABSOLUTE AUTO 0.56 K/mm3 (0.16-1.47); MONOCYTES PERCENT AUTO 8 % (4-13); Mean Corpuscular HGB 33.6 pg (26.0-34.0); Mean Corpuscular HGB Conc 34.7 g/dL (31.5-36.5); Mean Corpuscular Volume 97 fL (80-100); Mean Platelet Volume 8.8 fL (9.1-12.4); NEUTROPHILS ABSOLUTE AUTO 3.87 K/mm3 (1.96-9.15); NEUTROPHILS PERCENT AUTO 56 % (41-73); Platelet Count 198 K/mm3 (150-400); RDW Coefficient Variation 12.2 % (11.7-14.2); Red Blood Cell Count 4.31 M/mm3 (4.30-5.90); White Blood Cell Count 6.86 K/mm3 (4.00-11.30)
[2024-05-19 20:34] LABS: Albumin, Blood 3.9 g/dL (3.4-5.0); Albumin/Globulin Ratio 1.2 (0.8-1.8); Bilirubin, Total 0.5 mg/dL (0.1-1.0); Bun/Creatinine Ratio 13.9 (12.0-20.0); Calcium, Blood 9.1 mg/dL (8.5-10.1); Creatinine, Blood 1.08 mg/dL (0.60-1.20); Globulin, Blood 3.2 g/dL (2.2-4.0); Potassium, Blood 3.9 mmol/L (3.5-5.5); Total Protein, Blood 7.1 g/dL (6.4-8.2)
[2024-05-19 22:25] LABS: Source, Urine Clean Catch
[2024-05-19 22:52] LABS: Appearance, Urine Clear (Clear); Bilirubin, Urine Neg (Neg); Blood, Urine Neg (Neg); Color, Urine Yellow (P-Yellow); Glucose Qualitative, Urine Neg (Neg); Ketones, Urine Neg (Neg); Leukocyte Esterase, Urine Neg (Neg); Nitrite, Urine Neg (Neg); Protein, Urine Neg (Neg); Specific Gravity, Urine 1.015 (1.003-1.022); Urobilinogen, Urine NORM (Normal)
== END 2024-05-19 23:36 | disposition home or self-care (01) ==
LOC: ER 19:42
PROVIDERS: Physician Assistant
DX: R41.0 Disorientation, unspecified (principal); R07.89 Other chest pain; I25.2 Old myocardial infarction; Z79.82 Long term (current) use of aspirin; Z79.899 Other long term (current) drug therapy
CPT/HCPCS: 71046; 80053; 81003; 84484; 85025; 93005; 93010; 99285-25

== ENCOUNTER → 2024-06-24 | Outpatient (CLI) | payer OTHER ==
[2024-06-24 19:24] LABS: Albumin/Globulin Ratio 1.2 (0.8-1.8); Bilirubin, Total 0.6 mg/dL (0.1-1.0); Bun/Creatinine Ratio 13.3 (12.0-20.0); Calcium, Blood 9.4 mg/dL (8.5-10.1); Creatinine, Blood 1.05 mg/dL (0.60-1.20); Globulin, Blood 3.4 g/dL (2.2-4.0); Potassium, Blood 4.1 mmol/L (3.5-5.5); Total Protein, Blood 7.4 g/dL (6.4-8.2)
[2024-06-24 19:55] LABS: BASOPHILS ABSOLUTE AUTO 0.05 K/mm3 (0.00-0.23); BASOPHILS PERCENT AUTO 1 % (0-2); EOSINOPHILS ABSOLUTE AUTO 0.05 K/mm3 (0.00-0.68); EOSINOPHILS PERCENT AUTO 1 % (0-6); Hematocrit 43.3 % (37.0-53.0); Hemoglobin 14.8 g/dL (13.5-17.5); IMMATURE GRAN ABSOLUTE AUTO 0.02 K/mm3 (0.00-0.10); IMMATURE GRAN PERCENT AUTO 0 % (0-1); LYMPHOCYTES ABSOLUTE AUTO 1.88 K/mm3 (0.84-5.20); LYMPHOCYTES PERCENT AUTO 25 % (21-46); MONOCYTES ABSOLUTE AUTO 0.44 K/mm3 (0.16-1.47); MONOCYTES PERCENT AUTO 6 % (4-13); Mean Corpuscular HGB 33.6 pg (26.0-34.0); Mean Corpuscular HGB Conc 34.2 g/dL (31.5-36.5); Mean Corpuscular Volume 98 fL (80-100); Mean Platelet Volume 9.5 fL (9.1-12.4); NEUTROPHILS ABSOLUTE AUTO 5.03 K/mm3 (1.96-9.15); NEUTROPHILS PERCENT AUTO 67 % (41-73); Platelet Count 227 K/mm3 (150-400); RDW Coefficient Variation 12.7 % (11.7-14.2); RDW Standard Deviation 46.1 fL (35.1-46.3); White Blood Cell Count 7.47 K/mm3 (4.00-11.30)
== END ==
LOC: LAB SHORT 17:26 → LAB 17:26
PROVIDERS: Family Medicine
DX: Z79.899 Other long term (current) drug therapy (principal)
CPT/HCPCS: 80053; 85025

== ENCOUNTER 2024-12-03 11:51 | Day surgery (SDC) | payer OTHER ==
[~2024-12-03] VITALS: Ht 188 cm; Wt 84.8 kg
[~2024-12-03 11:51] MED LIST changes: +AREDS; +BUME1; +Balanced Salt Epinephrine Irrigation Solution 500 mL IR SCH; +Colace100 MG; +MELA3 PO; +MIRALAX17 GM PO; +Moxifloxacin HCL 0.5 MG/0.1 ML 0.4MLSYR LEFTEYE SCH; +NS 500 ML IV ONE; +PHENYLEPHRINE\\TROPICAMIDE\\TETRACAINE OPHTHALMIC DILATING SOLN LEFTEYE PRN; +Povidone-Iodine 450 DROP/30 ML Solution LEFTEYE SCH; +Povidone-Iodine 450 DROP/30 ML Solution ONE; +Tetracaine HCl/Pf 0.5% Opth Soln 4 ml ONE; +Triamcinolone Inj Susp 40 MG / ML 1ML Vial INJ SCH; +Triamcinolone Inj Susp 40 MG / ML 1ML Vial ONE
[2024-12-03] MEDS ORDERED: NS 500 ML IV ONE (12:39)
[2024-12-03] MEDS ORDERED: FentaNYL Citrate 50 MCG/ML 2 ML Injection ONE (12:51)
[2024-12-03] MEDS ORDERED: Glycopyrrolate 0.2 MG/ML 5ML VIAL ONE (13:12)
[2024-12-03 13:36] VITALS: BP 120/77
== END 2024-12-03 13:59 | disposition home or self-care (01) ==
LOC: ORSCSDS 11:51
PROVIDERS: Ophthalmology
PROC: 08RK3JZ Replacement of Left Lens with Synthetic Substitute, Percutaneous Approach (ICD-10-PCS; principal; 2024-12-03 13:30)
DX: H25.812 Combined forms of age-related cataract, left eye (principal); Z96.1 Presence of intraocular lens; H35.3122 Nonexudative age-related macular degeneration, left eye, intermediate dry stage; H35.3211 Exudative age-related macular degeneration, right eye, with active choroidal neovascularization; H35.89 Other specified retinal disorders; I48.91 Unspecified atrial fibrillation; I25.2 Old myocardial infarction; F03.90 Unspecified dementia, unspecified severity, without behavioral disturbance, psychotic disturbance, mood disturbance, and anxiety; Z87.891 Personal history of nicotine dependence; Z86.73 Personal history of transient ischemic attack (TIA), and cerebral infarction without residual deficits; E78.5 Hyperlipidemia, unspecified; Z79.82 Long term (current) use of aspirin; Z79.899 Other long term (current) drug therapy
CPT/HCPCS: J3010; J3301; J7040; V2632

== ENCOUNTER → 2024-12-08 | Outpatient (CLI) | payer OTHER ==
[~2024-12-08] MED LIST changes: -Balanced Salt Epinephrine Irrigation Solution 500 mL IR SCH; -Moxifloxacin HCL 0.5 MG/0.1 ML 0.4MLSYR LEFTEYE SCH; -NS 500 ML IV ONE; -PHENYLEPHRINE\\TROPICAMIDE\\TETRACAINE OPHTHALMIC DILATING SOLN LEFTEYE PRN; -Povidone-Iodine 450 DROP/30 ML Solution LEFTEYE SCH; -Povidone-Iodine 450 DROP/30 ML Solution ONE; -Tetracaine HCl/Pf 0.5% Opth Soln 4 ml ONE; -Triamcinolone Inj Susp 40 MG / ML 1ML Vial INJ SCH; -Triamcinolone Inj Susp 40 MG / ML 1ML Vial ONE
[2024-12-08 19:23] LABS: BASOPHILS ABSOLUTE AUTO 0.04 K/mm3 (0.00-0.23); BASOPHILS PERCENT AUTO 1 % (0-2); EOSINOPHILS ABSOLUTE AUTO 0.06 K/mm3 (0.00-0.68); EOSINOPHILS PERCENT AUTO 1 % (0-6); Hematocrit 44.7 % (37.0-53.0); Hemoglobin 15.3 g/dL (13.5-17.5); IMMATURE GRAN ABSOLUTE AUTO 0.02 K/mm3 (0.00-0.10); IMMATURE GRAN PERCENT AUTO 0 % (0-1); LYMPHOCYTES ABSOLUTE AUTO 2.38 K/mm3 (0.84-5.20); LYMPHOCYTES PERCENT AUTO 35 % (21-46); MONOCYTES ABSOLUTE AUTO 0.47 K/mm3 (0.16-1.47); MONOCYTES PERCENT AUTO 7 % (4-13); Mean Corpuscular HGB Conc 34.2 g/dL (31.5-36.5); Mean Corpuscular Volume 98 fL (80-100); NEUTROPHILS ABSOLUTE AUTO 3.79 K/mm3 (1.96-9.15); NEUTROPHILS PERCENT AUTO 56 % (41-73); NRBC ABSOLUTE 0.00 K/mm3 (0.00-0.02); NRBC Auto 0.0 /100 WBC (0.0-0.2); Platelet Count 207 K/mm3 (150-400); RDW Coefficient Variation 12.7 % (11.7-14.2); RDW Standard Deviation 45.9 fL (35.1-46.3)
[2024-12-08 19:54] LABS: Alanine Aminotransfer (ALT/SGP 31 U/L (12-78); Albumin, Blood 3.9 g/dL (3.4-5.0); Albumin/Globulin Ratio 1.3 (0.8-1.8); Anion Gap 6 mmol/L (3-11); Aspartate Aminotrans (AST/SGOT 39 U/L (12-37); Bilirubin, Total 0.7 mg/dL (0.1-1.0); Blood Urea Nitrogen 16 mg/dL (8-24); CHOL/HDL RATIO 1.4; CO2, Blood 28 mmol/L (21-32); Calcium, Blood 8.9 mg/dL (8.5-10.1); Chloride, Blood 109 mmol/L (98-108); Cholesterol 107 mg/dL (50-200); Creatinine, Blood 1.10 mg/dL (0.60-1.20); Globulin, Blood 3.1 g/dL (2.2-4.0); Glucose, Blood 101 mg/dL (70-99); HDL Cholesterol 77 mg/dL (>39); LDL/HDL RATIO 0.3; Low Density Lipoprotein Chol 20 mg/dL (0-110); Potassium, Blood 4.3 mmol/L (3.5-5.5); Sodium, Blood 139 mmol/L (136-145); Total Protein, Blood 7.0 g/dL (6.4-8.2); Triglycerides 49 mg/dL (30-160); Very Low Density Lipoprot Chol 9 mg/dL (6-32)
[2024-12-08 20:01] LABS: Thyroid Stimulating Hormone 1.350 uIU/mL (0.360-4.800)
== END ==
LOC: LAB SHORT 17:22 → LAB 17:22
PROVIDERS: Family Medicine
DX: Z51.81 Encounter for therapeutic drug level monitoring (principal); Z79.899 Other long term (current) drug therapy
CPT/HCPCS: 80053; 80061; 82306; 83036; 84443; 85025